=== PATIENT | female | born 1975 | race African-American/Black ===

== ENCOUNTER 2017-08-01 09:57 | Outpatient (CLI) | payer MEDICARE ==
--- NOTE | 2017-08-01 11:36 | RAD ---
TWO VIEWS OF THE LUMBOSACRAL SPINE: HISTORY: Low back pain radiating down the right leg for two days. The patient has had two prior low back leanna geries. COMPARISON: 12/26/2016 FINDINGS: Two views of the lumbosacral spine show the patient to be status post posterior fusion of L4 through S1 with right-sided pedicle screws. There has been a fracture of the superior screw at L4, which h as occurred in the interval, compared to the prior examination. No perihardware lucency is seen. T he disk spacers are in good position within the disk spaces. No subluxation of the vertebral bodies is seen. IMPRESSION: Fractured L4 screw. POS: KONG
== END 2017-08-01 09:58 | disposition home or self-care (01) ==
LOC: TBSIIMAG 09:57
PROVIDERS: ATTEND Physician Assistant
DX: M54.16 Radiculopathy, lumbar region (principal); Z98.1 Arthrodesis status; T84.218A Breakdown (mechanical) of internal fixation device of other bones, initial encounter
CPT/HCPCS: 72100

== ENCOUNTER 2017-08-09 15:25 | Outpatient (CLI) | payer MEDICARE ==
--- NOTE | 2017-08-09 17:25 | CT ---
CT LUMBAR SPINE WITHOUT CONTRAST: Date: 08/09/17 COMPARISON: Lumbar radiographs dated 08/01/17 and 12/26/16. HISTORY: Lumbar radiculopathy with broken screw. Prior spinal surgery. Low back pain. TECHNIQUE: Multiple contiguous axial images were obtained in a CT of the lumbar spine without contrast. Sagitta l and coronal reformats were performed. FINDINGS: Postsurgical surgical changes are seen from fusion of L4 through S1 with right-sided pedicle screws. As was seen on the plain radiograph, the pedicle screw at L4 is broken. No perihardware lucency is seen surrounding the screw within the vertebral body. There is subtle lucency surrounding the licensed home inspector ior aspect of the screw at L4. The L5 and S1 screws show no perihardware lucency. The vertebral bodi es demonstrate normal alignment without subluxation. The disc spaces are in good position within the disc spaces. No bony narrowing of the neural foramen or central canal are seen. IMPRESSION: Fractured L4 pedicle screw with lucency seen along the dorsal aspect of the screw. POS: KONG
== END 2017-08-09 15:26 | disposition home or self-care (01) ==
LOC: TBSIIMAG 15:25
PROVIDERS: ATTEND Neurological Surgery
DX: M54.16 Radiculopathy, lumbar region (principal)
CPT/HCPCS: 72131

== ENCOUNTER 2017-09-03 06:58 | Inpatient (IN) | payer MEDICARE ==
[2017-08-31 17:48] VITALS: BMI 46.3
[2017-09-03 08:48] LABS: Hematocrit 30.7 % (36.0-47.0); Mean Platelet Volume 5.3 fL (7.4-10.4); Red Blood Cell (RBC) Count 4.61 mill/uL (4.20-5.40); White Blood Cell (WBC) Count 4.2 thou/uL (4.8-10.8)
[2017-09-03] MEDS ORDERED: CEFAZOLIN/Water 2 GM/20 ML SYRINGE ONE (08:49)
[2017-09-03] MEDS ORDERED: Sodium Chloride 0.9% 10 ML ONE (09:00)
[2017-09-03 09:10] LABS: Anion Gap 9 mmol/L (10-20); BUN (Urea Nitrogen) 9 mg/dL (7.0-18.7); Calc. Creatinine Clearance 195 mL/min (70-130); Calcium 8.9 mg/dL (7.8-10.44); Carbon Dioxide 24 mmol/L (22-29); Chloride 112 mmol/L (98-107); Estimated GFR-MDRD Greater than 90
[2017-09-03] MEDS ORDERED: Fentanyl 250 MCG/5 ML VIAL ONE (09:20)
[2017-09-03] MEDS ORDERED: Propofol 200 MG/20 ML VIAL ONE (09:27)
[2017-09-03] MEDS ORDERED: Ondansetron HCl/PF 4 MG/2 ML Vial ONE (09:27)
[2017-09-03] MEDS ORDERED: Lidocaine 1% PF 5 ML VIAL ONE (09:27)
[2017-09-03] MEDS ORDERED: Glycopyrrolate 0.2 MG/ML 5 ML SYRINGE ONE (09:27)
[2017-09-03] MEDS ORDERED: Ketorolac Tromethamine 30 MG/ML VIAL ONE (09:27)
[2017-09-03] MEDS ORDERED: Dexamethasone 20 MG/5 ML VIAL ONE (09:27)
[2017-09-03] MEDS ORDERED: Fentanyl 100 MCG/2 ML VIAL ONE (10:50)
--- NOTE | 2017-09-03 12:00 | OP ---
DATE OF OPERATION: 09/03/2017 SURGEON: Dilip Elliott M.D. SUPERVISORY CLERK: Elin Thomas PA-C PROCEDURE PERFORMED: Removal of hardware L4-S1, exploration of spinal fusion L4-S1, laminectomy, fa cetectomy, foraminotomy, pedicle screw instrumentation, left L4-5, posterolateral arthrodesis L4-5, cancellous bone chips and BMP, local morselized autograft. PROCEDURE IN DETAIL: The patient was brought into the operating room, intubated. She was rolled in the prone position on gel-filled chest rolls. The previous incision was reopened and the prior alan dware was identified and removed the nuts and rods and removed the fractured fragment of the right L 4 screw. The fusion was explored and seemed at L5-S1 was likely to be solid. We replaced the segundo b etween L5 and S1 on the side, secured by screws by nuts which were final tightened. On the left мария e, we then exposed the L4-L5 region and placed pedicle screws at left L4 and left L5 using lateral f luoroscopic guidance. A segundo was secured between the screws, connected by nuts which were final tigh tened. The wound was extensively irrigated, immaculate hemostasis was secured. A combination of ca ncellous bone chips, BMP and a Gelfoam pledget were laid over the left laminar and posterolateral brizuela rfaces for the purpose of arthrodesis. Vancomycin powder was applied and the wound was closed in an atomic layers.
[2017-09-03] MEDS ORDERED: HYDROcodone/Acetaminophen 5/325 mg Tablet ONE (12:13)
[2017-09-03] MEDS ORDERED: Morphine 4 MG/ML VIAL ONE (12:45)
--- NOTE | 2017-09-04 13:47 | DIS ---
HOSPITAL COURSE: The patient is a 42-year-old female, known to us for prior lumbar decomp ression and fusion, who we saw recently in the clinic for worsening back pain. CT of her lumbar spi ne revealed a fracture of L4 pedicle screw and therefore is recommended that patient return for revi alayna of fusion. The patient underwent revision of fusion with BMP without complications. Following surgery, she was transitioned to Day Stay where her pain was well controlled. She was tolerating h er diet, ambulatory throughout the department. Patient was dismissed to home. She is to follow up with us in 2 weeks with x-rays at that time, I discussed home care precautions .
== END 2017-09-03 14:10 | disposition home or self-care (01) | DRG 460 ==
LOC: SURG A 06:58
PROVIDERS: ADMIT Neurological Surgery; ATTEND Neurological Surgery
PROC: 0SG0071 Fusion of Lumbar Vertebral Joint with Autologous Tissue Substitute, Posterior Approach, Posterior Column, Open Approach (ICD-10-PCS; principal; 2017-09-03)
PROC: 0SP004Z Removal of Internal Fixation Device from Lumbar Vertebral Joint, Open Approach (ICD-10-PCS; 2017-09-03)
PROC: 0SJ30ZZ Inspection of Lumbosacral Joint, Open Approach (ICD-10-PCS; 2017-09-03)
DX: T84.216A Breakdown (mechanical) of internal fixation device of vertebrae, initial encounter (principal); M43.16 Spondylolisthesis, lumbar region
CPT/HCPCS: 76001; 80048; 85027; 96374; A4216; C1713; J1100; J1885; J2001; J2270; J2405; J2704; J3010; J3370; J3490

== ENCOUNTER 2017-09-20 15:58 | Outpatient (CLI) | payer MEDICARE ==
--- NOTE | 2017-09-20 17:12 | RAD ---
LUMBAR SPINE TWO VIEWS: Comparison: 08-01-17 History: Lumbar fusion. Cervical revision. Post-operative exam. FINDINGS: There are metallic skin fernanda. Stable right sided transverse screws at L5 and S1. The previously fr agmented screw at L4 is partially removed. There is a vertical stabilization segundo on the right side at L5 and S1. There are new transpedicular screws are left at L4 and L5. Stable disc prostheses. Alignm ent appears to be within normal limits. No significant listhesis. IMPRESSION: Post-surgical changes as above. POS: KONG
== END 2017-09-20 15:59 | disposition home or self-care (01) ==
LOC: TBSIIMAG 15:58
PROVIDERS: ATTEND Physician Assistant
DX: M54.16 Radiculopathy, lumbar region (principal); Z98.890 Other specified postprocedural states
CPT/HCPCS: 72100

== ENCOUNTER 2017-11-28 16:10 | Outpatient (CLI) | payer MEDICARE ==
--- NOTE | 2017-11-28 16:57 | RAD ---
LUMBAR SPINE TWO VIEWS: History: Follow up surgery. Comparison: 05-20-17 FINDINGS: Left L4-5 and right L5-S1 screw interconnecting rods are similar. No significant migration of the L4- 5 disc cage although there appears to be some very mild anterior migration of the L5-S1 disc cage. No significant listhesis. Mild reverse S-shaped scoliosis of the thoracolumbar spine. IMPRESSION: Very mild anterior migration of the L5-S1 disc cage with the anterior margin approximately 6 mm anter ior to the L5 vertebral body. 2. The right L4 fragmented screw is similar with periscrew lucency. POS: OFF
== END 2017-11-28 16:11 | disposition home or self-care (01) ==
LOC: TBSIIMAG 16:10
PROVIDERS: ATTEND Neurological Surgery
DX: M51.36 Other intervertebral disc degeneration, lumbar region (principal); Z98.1 Arthrodesis status
CPT/HCPCS: 72100

== ENCOUNTER 2018-03-26 06:40 | Emergency (ER) | payer MEDICARE ==
[2018-03-26] MEDS ORDERED: Ibuprofen 800 MG TAB ONE (07:30)
== END 2018-03-26 07:38 | disposition home or self-care (01) ==
LOC: ERS 06:40
DX: H66.91 Otitis media, unspecified, right ear (principal); I10 Essential (primary) hypertension; F32.9 Major depressive disorder, single episode, unspecified; F17.210 Nicotine dependence, cigarettes, uncomplicated; Z79.899 Other long term (current) drug therapy
CPT/HCPCS: 99282

== ENCOUNTER 2019-02-13 01:24 | Emergency (ER) | payer MEDICARE ==
[2019-02-13 02:04] LABS: #Basophils 0.1 thou/uL (0.0-0.2); #Eosinphils 0.1 thou/uL (0.0-0.7); #Lymphocytes 1.1 thou/uL (1.20-3.40); #Monocytes 0.3 thou/uL (0.11-0.59); #Neutrophils 2.5 thou/uL (1.40-6.50); %Basophils 1.5 % (0.0-1.0); %Eosinophils 1.3 % (0.0-10.0); %Lymphocytes 26.6 % (21.0-51.0); %Monocytes 7.4 % (0.0-10.0); %Neutrophils 63.3 % (42.0-75.0); Hemoglobin 10.1 g/dL (12.0-16.0); Mean Corpuscular HGB CONC 34.3 g/dL (32.0-36.0); Mean Corpuscular Volume 69.8 fL (78.0-98.0); Mean Platelet Volume 10.1 fL (7.4-10.4); Platelet Count 244 thou/uL (130-400); RBC Distribution Width 16.6 % (11.5-14.5); Red Blood Cell (RBC) Count 4.23 mill/uL (4.20-5.40)
[2019-02-13 02:23] LABS: ALT (SGPT) 15 U/L (8-55); AST (SGOT) 13 U/L (5-34); Albumin 3.9 g/dL (3.5-5.0); Alkaline Phosphatase 89 U/L (40-150); Anion Gap 14 mmol/L (10-20); BUN (Urea Nitrogen) 10 mg/dL (7.0-18.7); Bilirubin, Total 0.5 mg/dL (0.2-1.2); Calc. Creatinine Clearance 0 mL/min (70-130); Calcium 9.3 mg/dL (7.8-10.44); Carbon Dioxide 22 mmol/L (22-29); Chloride 109 mmol/L (98-107); Estimated GFR-MDRD Greater than 90; Globulin 2.2 g/dL (2.4-3.5); Glucose 128 mg/dL (70-105); Potassium 3.5 mmol/L (3.5-5.1); Protein, Total 6.1 g/dL (6.0-8.3); Sodium 141 mmol/L (136-145)
--- NOTE | 2019-02-13 07:41 | CT ---
PRELIMINARY REPORT: CT Angiography Chest With Contrast EXAM DATE/TIME: 02/13/2019 2:42 AM CLINICAL HISTORY: 43 years old, female; Signs and symptoms; Dyspnea and shortness of breath; Patient HX: Er 13. F43 presents to ED via EMS with C/O SOB and heart palpitations x1.5 hour that is intermittent. PT reports noticing that when she had a fast hr she had more trouble breathing. PT reports HX of HTN, has been taking a friend's amlodipine for the past 2 weeks. TECHNIQUE: Imaging protocol: Axial computed tomographic angiography images of the chest with intravenous contrast using CT angiography protocol. 3D rendering: MIP reconstructed images were created and reviewed. COMPARISON: No relevant prior studies available. FINDINGS: Pulmonary arteries: No pulmonary emboli. Aorta: No aortic aneurysm. No aortic dissection. Lungs: No focal infiltrate. No masses. Pleural space: No pneumothorax. No pleural effusion. Heart: No cardiomegaly. No pericardial effusion. Lymph nodes: Unremarkable. No enlarged lymph nodes. Bones/joints: Chronic degenerative spinal changes without acute fracture or dislocation. Soft tissues: Unremarkable. IMPRESSION: No pulmonary emboli. No acute disease identified. Thank you for allowing us to participate in the care of your patient. Dictated and Authenticated by: Jazmine Diaz MD 02/13/2019 3:46 AM Central Time ([place] & [place]) Emergency after-hours CT angiogram thorax HISTORY: Shortness of breath and heart palpitations. COMPARISON: None IMPRESSION: No pulmonary embolus is visualized. Findings are in agreement with the preliminary report by the read . Transcribed Date/Time: 02/13/2019 8:18 AM
--- NOTE | 2019-02-13 08:02 | RAD ---
EXAM: CHEST ONE VIEW HISTORY: Shortness of breath and heart palpitations. COMPARISON: 09/29/2014 FINDINGS: The cardiac silhouette and pulmonary vasculature is within normal limits. The lungs are clear. The os seous structures are intact. Chest is stable compared to prior study. IMPRESSION: No acute cardiopulmonary process.
[2019-02-13] MEDS ORDERED: ISOVUE-370 76%-LOCM 1 ML ONE (11:11)
== END 2019-02-13 05:34 | disposition home or self-care (01) ==
LOC: ERS 01:24
DX: R00.0 Tachycardia, unspecified (principal); R06.02 Shortness of breath; I10 Essential (primary) hypertension; F32.9 Major depressive disorder, single episode, unspecified; F17.210 Nicotine dependence, cigarettes, uncomplicated; Z79.899 Other long term (current) drug therapy
CPT/HCPCS: 36415; 71045; 71275; 80053; 84484; 85025; 85379; 93005; Q9966